=== PATIENT | male | born 1980 | race Caucasian/White ===

== ENCOUNTER 2017-01-10 | Outpatient (CLI) | payer BC | END 2017-01-10 18:16 | disposition critical access hospital (66) | CPT/HCPCS: A0425; A0427 ==

== ENCOUNTER 2017-01-10 18:33 | Emergency (ER) | payer BC ==
[2017-01-10] MEDS ORDERED: SODIUM CHLORIDE 0.9% 1,000 ML IV ONE (18:36)
[2017-01-10] MEDS ORDERED: MORPHINE 2 MG/ML SYRINGE IVP STA (18:56)
[2017-01-10] MEDS ORDERED: KETOROLAC 60 MG/2 ML VIAL IVP STA (18:56)
[2017-01-10] MEDS ORDERED: KETOROLAC 30 MG/ML VIAL ONE (19:11)
[2017-01-10] MEDS ORDERED: MORPHINE 10 MG/ML VIAL ONE (19:11)
[2017-01-10] MEDS ORDERED: IOPAMIDOL-300 100 ML VIAL IVP ONE (19:39)
== END 2017-01-10 20:15 | disposition home or self-care (01) ==
DX: S20.219A Contusion of unspecified front wall of thorax, initial encounter (principal); W20.8XXA Other cause of strike by thrown, projected or falling object, initial encounter; R03.0 Elevated blood-pressure reading, without diagnosis of hypertension
CPT/HCPCS: 71260; 96374; 96375; 99283; 99284; Q9967

== ENCOUNTER 2020-12-23 08:56 | Emergency (ER) | payer BC ==
--- NOTE | 2020-12-23 10:03 | ED Physician Documentation ---
PD HPI ABD PAIN - Stated complaint Stated Complaint: DIARRHEA/FLU LIKE SYMPTOMS - Chief complaint Chief Complaint: Abd Pain - History obtained from History obtained from: Patient - Additional information Additional information: 40YM with pmh panic attacks p/w self-reported panic attack this morning. he states he had a xanax script but has had to switch doctors recently and ran out of medicine. He had a panic attack this morning and presented to the emergency department due to these concerns. He also states that he had recent stroke which has resulted in chronic nbnb n/v and diarrhea that worsened acutely this am. He realized upon arrival to the ed that his scopolamine patch he usually wears to prevent these symptoms had fallen off likely at some point yesterday without his noticing. He believes these symptoms contributed to his panic attack. At time of interview patient is calm in NAD with no active complaints. Review of Systems Ten Systems: 10 systems reviewed and negative Constitutional: denies: Fever, Chills Cardiac: denies: Chest pain / pressure GI: reports: Nausea, Vomiting, Diarrhea. denies: Abdominal Pain Psychiatric: reports: Anxiety PD PAST MEDICAL HISTORY - Past Medical History Past Medical History: Yes Cardiovascular: Hypertension - Past Surgical History Past Surgical History: Yes - Present Medications Home Medications: Ambulatory Orders Medication Instructions Recorded Confirmed Lisinopril [Prinivil] 5 mg PO 12/23/20 Prochlorperazine Maleate 10 mg PO Q4HR PRN #10 tab 12/23/20 [Compazine] - Allergies Allergies/Adverse Reactions: Allergies Allergy/AdvReac Type Severity Reaction Status Date / Time No Known Drug Allergies Allergy Verified 12/23/20 09:16 - Social History Does the pt smoke?: No Smoking Status: Never smoker Does the pt drink ETOH?: Yes Does the pt have substance abuse?: No - Immunizations Immunizations are current?: Yes PD ED PE NORMAL - Vitals Vital signs reviewed: Yes - General General: Alert and oriented X 3, No acute distress, Well developed/nourished - HEENT HEENT: Atraumatic, PERRL, EOMI - Neck Neck: Supple, no meningeal sign - Cardiac Cardiac: RRR - Respiratory Respiratory: No respiratory distress, Clear bilaterally - Abdomen Abdomen: Soft, Non tender, Non distended - Male Male : Deferred - Rectal Rectal: Deferred - Back Back: No CVA TTP - Derm Derm: Normal color - Extremities Extremities: No deformity - Neuro Neuro: Alert and oriented X 3 - Psych Psych: Other (slightly anxious mood and affect) Results - Vitals Vitals: Oxygen O2 Source Room air PD MEDICAL DECISION MAKING - ED course ED course: 40yM p/w acute anxiety attack and chronic GI symptoms that have now resolved. will dc home with strict return precautions. patient requested xanax script and I advised him to re-establish care with his psychiatrist and primary doctor in order to better manage his anxiety. Nonaddictive alternative coping mechanisms discussed. Departure - Departure Disposition: 01 Home, Self Care Clinical Impression: Nausea and vomiting, Diarrhea, Alcohol use Condition: Good Instructions: ED Diarrhea Viral, ED Nausea Vomiting Prescriptions: Prochlorperazine Maleate [Compazine] 10 mg PO Q4HR PRN #10 tab PRN Reason: Nausea / Vomiting Comments: You were seen in the emergency department for nausea, vomiting, and diarrhea. Your vital signs are normal at this time and it does not appear that you are dehydrated. Her blood pressure was slightly elevated so she you should get it rechecked by your primary doctor. I put a call out to her office and will speak with her if she calls me back. Call her office today to make an appointment in clinic. If you decide to stop drinking alcohol then taper down slowly to prevent withdrawal symptoms. You can get Maalox [id number] as a stomach reliever. Make sure to stay well-hydrated with Pedialyte and take a multivitamin daily. Return to the emergency department if you would like assistance with detox, have any new or worsening symptoms or other concerns. Discharge Date/Time: 12/23/20 10:10
[2020-12-23 10:13] VITALS: BP 144/89
== END 2020-12-23 10:10 | disposition home or self-care (01) ==
LOC: ED 08:56
DX: R11.2 Nausea with vomiting, unspecified (principal); R19.7 Diarrhea, unspecified; F41.9 Anxiety disorder, unspecified; Z72.89 Other problems related to lifestyle; I10 Essential (primary) hypertension
CPT/HCPCS: 99282; 99284

== ENCOUNTER 2021-10-29 17:29 | Emergency (ER) | payer BC, OTHER ==
[2021-10-29] MEDS ORDERED: ROPIVACAINE 0.5% PF 30 ML VIAL SUBQ STA (17:52)
[2021-10-29] MEDS ORDERED: TRIAMCINOLONE 40 MG/ML VIAL IM STA (17:52)
--- NOTE | 2021-10-29 17:53 | ED Physician Documentation ---
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 There was no specific trauma, just overuse and has severe pain of the right buttock radiating down the right leg. He saw his physician in [place] for this and was prescribed tizanidine and hydrocodone and he was forthcoming with this information and corresponds with his [employer]. Despite this the pain is severe and he has been using alcohol to help him deal with the pain. When queried whether or not he could quit alcohol he has doubts at this point. This of course makes pain management difficult. He is going to be seeing physical therapy for this, but due to the there will be a delay. Review of Systems Constitutional: denies: Fever, Chills GI: denies: Abdominal Pain, Nausea, Vomiting : denies: Dysuria, Frequency, Incontinent PD PAST MEDICAL HISTORY - Past Medical History Cardiovascular: Hypertension - Past Surgical History Past Surgical History: Yes - Present Medications Home Medications: Ambulatory Orders Medication Instructions Recorded Confirmed lisinopriL [Prinivil] 5 mg PO DAILY 12/23/20 10/29/21 - Allergies Allergies/Adverse Reactions: Allergies Allergy/AdvReac Type Severity Reaction Status Date / Time No Known Drug Allergies Allergy Verified 12/23/20 09:16 - Social History Does the pt smoke?: No Smoking Status: Never smoker Does the pt drink ETOH?: Yes Does the pt have substance abuse?: No - Immunizations Immunizations are current?: Yes PD ED PE NORMAL - Vitals Vital signs reviewed: Yes - General General: Alert and oriented X 3, No acute distress - Abdomen Abdomen: Normal bowel sounds, Soft, Non tender - Back Back: Other (Midline spinal tenderness, he does have point tenderness in the superior right buttock.) - Extremities Extremities: Other (The patient has equal and normal Achilles and patellar reflexes bilaterally. Normal sensation in all areas of the legs. Patient denies saddle anesthesia. Normal strength in flexion-extension at the ankles, knees, and flexion of the hips.) - Neuro Neuro: Alert and oriented X 3, Normal speech Results - Vitals Vitals: Vital Signs - 24 hr 10/29/21 17:36 Temperature 36.7 C Heart Rate 113 H Respiratory 18 Rate Blood Pressure 147/106 H O2 Saturation 96 Oxygen O2 Source Room air Procedures - General procedure General procedure: A trigger point injection was done with 1 mL of 40 mg of Kenalog and 5 mL of 0.5% Marcaine in the right buttock in the area of maximal tenderness after alcohol prep which the patient tolerated well. PD MEDICAL DECISION MAKING - ED course ED course: 41-year-old gentleman presents with sciatica. No "red flags" for a more serious cause of back pain that would require emergent imaging. He has been using alcohol for the pain and has a history of alcoholism. We discussed this, and of course that makes pain management more difficult. He received a trigger point injection and IM Toradol here. He is encouraged to return in the morning after not drinking all night if the pain is uncontrolled or if he wants to talk to the executive secretary social welfare. Departure - Departure Disposition: 01 Home, Self Care Clinical Impression: Alcohol abuse Sciatica Qualifiers: Laterality: right Qualified Code(s): M54.31 - Sciatica, right side Condition: Good Record reviewed to determine appropriate education?: Yes Instructions: ED Sciatica, ED Alcohol Abuse Comments: As discussed, you were seen here tonight for sciatica complicated by alcohol abuse. This of course makes pain management more difficult. We did a trigger point injection as well as a Toradol shot, and I encouraged her to go home and not drink tonight. Return in the morning if you are having significant symptoms of alcohol withdrawal, uncontrolled pain, or would like to talk to the executive secretary social welfare. Otherwise, I encourage you to follow through on your primary care plan for physical therapy.
[2021-10-29] MEDS ORDERED: BUPIVACAINE 0.5% PF 10 ML VIAL SUBQ STA (17:55)
[2021-10-29] MEDS ORDERED: ROPIVACAINE 0.2% PF 20 ML AMPULE SUBQ ONE (17:55)
[2021-10-29] MEDS ORDERED: KETOROLAC 60 MG/2 ML VIAL IM STA (18:13)
[2021-10-29] MEDS ORDERED: ONDANSETRON ODT 4 MG TABLET TL STA (18:32)
[2021-10-29] MEDS ORDERED: ONDANSETRON ODT 4 MG Prepack 2 TL STA (18:54)
[2021-10-29 19:11] VITALS: BP 169/102
== END 2021-10-29 19:49 | disposition home or self-care (01) ==
LOC: ED 17:29
DX: M54.31 Sciatica, right side (principal); F10.20 Alcohol dependence, uncomplicated; I10 Essential (primary) hypertension
CPT/HCPCS: 20552; 96372; 99283; Q0162